=== PATIENT | female | born 1990 | race Caucasian/White ===

== ENCOUNTER 2016-11-10 17:08 | Emergency (ER) | payer OTHER ==
[~2016-11-10] VITALS: Ht 152.4 cm; Wt 107.0 kg
[2016-11-10 17:12] VITALS: TEMP 37
[2016-11-10] MEDS ORDERED: SODIUM CHLORIDE 0.9% 1000ML 1,000 ML IV SCH (17:28)
[2016-11-10 17:59] LABS: BASO % 0.3 %; BASO ABS # 0.02 K/uL (0-0.2); COMPLETE YES; EOS % 1.2 %; HEMATOCRIT 38.6 % (37-47); LYMPH % 35.9 %; LYMPH ABS # 2.73 K/uL (1.2-3.4); MEAN CELL VOLUME 83.5 fL (80-100); MEAN CORPUSCULAR HEMOGLOBIN 28.6 pg (25-34); MEAN CORPUSCULAR HGB CONC 34.2 g/dl (32-36); MEAN PLATELET VOLUME 10.6 fL (7.4-10.4); MONO % 7.6 %; PLATELET COUNT 298 K/uL (130-400); RED BLOOD COUNT 4.62 M/uL (4.2-5.4)
[2016-11-10 18:03] VITALS: Ht 152.4 cm; Wt 107.0 kg
[2016-11-10 18:07] VITALS: O2SAT 99
[2016-11-10 18:12] LABS: PARTIAL THROMBOPLASTIN RATIO 1.1; PROTHROMBIN TIME (PATIENT) 11.1 SECONDS (9.0-12.0)
[2016-11-10 18:23] LABS: PREG INTERNAL NEGATIVE QC NEG CLEAR BACKGROUND; PREG INTERNAL POSITIVE QC POS CONTROL LINE
[2016-11-10 18:24] LABS: BLOOD UREA NITROGEN 11 mg/dl (7-18); BUN/CREATININE RATIO 13.9 (10-20); CARBON DIOXIDE 24 mmol/L (21-32); CHLORIDE 108 mmol/L (98-107); CREATININE 0.79 mg/dl (0.60-1.20); GLUCOSE 88 mg/dl (70-99); POTASSIUM 3.6 mmol/L (3.5-5.1); SODIUM 140 mmol/L (136-145)
[2016-11-10 18:28] LABS: CKMB/CK RATIO 0.7 (0-3.0)
--- NOTE | 2016-11-10 18:37 | DIAGNOSTIC IMAGING REPORT ---
CT OF THE HEAD WITHOUT CONTRAST CLINICAL HISTORY: Possible stroke. Left eye vision loss. COMPARISON STUDY: No previous studies for comparison. CT DOSE: 537.48 mGy.cm TECHNIQUE: Helical axial images of the head were obtained without IV contrast. Automated exposure control was utilized for the study. FINDINGS: No acute intracranial hemorrhage, midline shift or mass effect is present. Brain volume is normal. Ventricular system is normal. The basilar cisterns are patent. There are no extra axial collections. Hardy-white differentiation is maintained. There are no findings to suggest acute dural sinus thrombosis or acute territorial infarct. Visualized portions of the sinuses and the mastoid air cells are clear. There are no significant calvarial abnormalities. IMPRESSION: No acute intracranial findings. Electronically signed by: Nash De La Rosa M.D. 11/10/2016 6:36 PM Dictated Date/Time: 11/10/2016 6:35 PM
[2016-11-10 19:11] LABS: MANUAL MICROSCOPIC REQUIRED? NO; REVIEW REQ? NO; URINE APPEARANCE CLEAR (CLEAR); URINE BILIRUBIN NEG (NEG); URINE COLOR YELLOW; URINE NITRITE NEG (NEG); URINE SPECIFIC GRAVITY 1.003 (1.000-1.030); UROBILINOGEN NEG (NEG); ZZUR CULT IF INDIC CLEAN CATCH NO
[2016-11-10 19:40] LABS: BENZODIAZEPINE, URINE NEG (NEG); COCAINE,URINE NEG (NEG); PHENCYCLIDINE, URINE NEG (NEG)
[2016-11-10] MEDS ORDERED: GADAVIST IV PRN (20:30)
--- NOTE | 2016-11-10 20:42 | DIAGNOSTIC IMAGING REPORT ---
Brain MRI WITH AND WITHOUT CONTRAST HISTORY: loss of vision, left eye, headache TECHNIQUE: Multiplanar multisequence MRI of the brain was performed both before and after the intravenous administration of contrast. COMPARISON STUDY: Head CT 11/10/2016. FINDINGS: There are no areas of restricted diffusion to suggest acute infarction. The midline structures are intact. The paranasal sinuses are clear. The mastoid air cells are clear. The ventricles and sulci are within normal limits for age. There is no mass, hematoma, midline shift. The major vascular flow-voids at the skull base are well maintained. Postcontrast sequences show no areas of abnormal enhancement. IMPRESSION: No acute intracranial abnormality. Electronically signed by: Paulino Contreras M.D. 11/10/2016 8:40 PM Dictated Date/Time: 11/10/2016 8:33 PM
[2016-11-10 22:35] VITALS: BP 135/88; PULSE 74; O2SAT 95
--- NOTE | 2016-11-11 01:27 | EMERGENCY ROOM VISIT NOTE ---
History Report prepared by Denise: Jeff Jovel Under the Supervision of: Dr. Julio César Wang M.D. First contact with patient: 17:27 Chief Complaint: EYE ASSESSMENT Stated Complaint: LOSS OF VISION IN LEFT EYE History of Present Illness The patient is a 26 year old female who presents to the Emergency Room with complaints of constant left eye vision loss occurring around 0900 this morning. The patient states that she went to bed last night with normal vision, and she woke up with a black spot on the left spot of her vision. The patient additionally is complaining of a headache for a few days now in the front of her head. She additionally states that the other day she was having some blue and white floaters in both eyes. The patient states that she has a history of headaches, however these are different than usual. The patient states that she has had some runny nose, but it is mostly when she goes outside. The patient denies any eye medical history or recent traumas. The patient states that she does not have any medical history, and she does not take any medications. The patient states that her mother had a stroke when she was about 52 years old. Pt denies LOC, fevers, chills, diaphoresis, neck pain, chest pain, breathing difficulties, nausea, vomiting, abdominal pain, back pain, melena, hematochezia , urinary symptoms, numbness, weakness, lymphadenopathy, rash, or other complaints. Source of History: patient Onset: 0900 this morning Position: eye (left) Quality: other (vision loss) Timing: constant Associated Symptoms: + headache Review of Systems See HPI for pertinent positives and negatives. A total of ten systems were reviewed and were otherwise negative. Past Medical & Surgical Medical Problems: (1) Headache Family History FHx: aneurysm Stroke Social History Smoking Status: Never Smoker Marital Status: single Occupation Status: employed Current/Historical Medications No Active Prescriptions or Reported Meds Allergies Coded Allergies: No Known Allergies (Unverified , 11/10/16) Physical Exam Vital Signs Date Time Temp Pulse Resp B/P Pulse Ox O2 Delivery O2 Flow Rate FiO2 11/10/16 22:35 74 16 135/88 95 11/10/16 22:01 72 11/10/16 20:33 79 16 131/83 98 Room Air 11/10/16 19:30 80 14 130/77 97 Room Air 11/10/16 18:53 71 18 150/79 96 Room Air 11/10/16 18:07 99 Room Air 11/10/16 18:00 83 11/10/16 17:30 82 16 155/95 99 Room Air 11/10/16 17:12 37.0 69 18 137/83 96 Room Air Physical Exam GENERAL: Awake, alert, well appearing, no distress HENT: Normocephalic, atraumatic. TM's normal. Oropharynx unremarkable. EYES: PERRL. EOMI. Normal conjunctiva. Sclera non-icteric. NECK: Supple. No nuchal rigidity. FROM. No JVD or bruit. RESPIRATORY: CTA CARDIAC: RRR. No murmur. ABDOMEN: Soft, non distended. No tenderness to palpation. No rebound or guarding. No masses. RECTAL: Deferred. MUSCULOSKELETAL: Unremarkable. No edema. No discoloration. Gross motor strength symmetric. NEURO: Visual ayala intact to static and dynamic testing bilaterally. Cranial nerves 2-12 grossly intact. Normal sensorium. No sensory or motor deficits noted. Speech normal. No pronator drift. SKIN: No rash or jaundice noted. LYMPH: No adenopathy. Medical Decision & Procedures ER Provider Diagnostic Interpretation: Radiology results as stated below per my review and radiologist interpretation CT OF THE HEAD WITHOUT CONTRAST CLINICAL HISTORY: Possible stroke. Left eye vision loss. COMPARISON STUDY: No previous studies for comparison. CT DOSE: 537.48 mGy.cm TECHNIQUE: Helical axial images of the head were obtained without IV contrast. Automated exposure control was utilized for the study. FINDINGS: No acute intracranial hemorrhage, midline shift or mass effect is present. Brain volume is normal. Ventricular system is normal. The basilar cisterns are patent. There are no extra axial collections. Hardy-white differentiation is maintained. There are no findings to suggest acute dural sinus thrombosis or acute territorial infarct. Visualized portions of the sinuses and the mastoid air cells are clear. There are no significant calvarial abnormalities. IMPRESSION: No acute intracranial findings. Electronically signed by: Nash De La Rosa M.D. 11/10/2016 6:36 PM Dictated Date/Time: 11/10/2016 6:35 PM Brain MRI WITH AND WITHOUT CONTRAST HISTORY: loss of vision, left eye, headache TECHNIQUE: Multiplanar multisequence MRI of the brain was performed both before and after the intravenous administration of contrast. COMPARISON STUDY: Head CT 11/10/2016. FINDINGS: There are no areas of restricted diffusion to suggest acute infarction. The midline structures are intact. The paranasal sinuses are clear. The mastoid air cells are clear. The ventricles and sulci are within normal limits for age. There is no mass, hematoma, midline shift. The major vascular flow-voids at the skull base are well maintained. Postcontrast sequences show no areas of abnormal enhancement. IMPRESSION: No acute intracranial abnormality. Electronically signed by: Paulino Contreras M.D. 11/10/2016 8:40 PM Dictated Date/Time: 11/10/2016 8:33 PM Laboratory Results 11/10/16 17:43 Red Blood Count 4.62, Mean Corpuscular Volume 83.5, Mean Corpuscular Hemoglobin 28.6, Mean Corpuscular Hemoglobin Concent 34.2, Mean Platelet Volume 10.6, Neutrophils (%) (Auto) 55.0, Lymphocytes (%) (Auto) 35.9, Monocytes (%) (Auto) 7.6, Eosinophils (%) (Auto) 1.2, Basophils (%) (Auto) 0.3, Neutrophils # (Auto) 4.18, Lymphocytes # (Auto) 2.73, Monocytes # (Auto) 0.58, Eosinophils # (Auto) 0.09, Basophils # (Auto) 0.02 11/10/16 17:43 Test 11/10/16 17:38 11/10/16 17:39 11/10/16 17:43 11/10/16 18:50 Bedside Prothrombin Time INR 1.0 (0.9-1.1) Bedside Glucose 91 mg/dl (70-90) White Blood Count 7.60 K/uL (4.8-10.8) Red Blood Count 4.62 M/uL (4.2-5.4) Hemoglobin 13.2 g/dL (12.0-16.0) Hematocrit 38.6 % (37-47) Mean Corpuscular Volume 83.5 fL (80-100) Mean Corpuscular Hemoglobin 28.6 pg (25-34) Mean Corpuscular Hemoglobin Concent 34.2 g/dl (32-36) Platelet Count 298 K/uL (130-400) Mean Platelet Volume 10.6 fL (7.4-10.4) Neutrophils (%) (Auto) 55.0 % Lymphocytes (%) (Auto) 35.9 % Monocytes (%) (Auto) 7.6 % Eosinophils (%) (Auto) 1.2 % Basophils (%) (Auto) 0.3 % Neutrophils # (Auto) 4.18 K/uL (1.4-6.5) Lymphocytes # (Auto) 2.73 K/uL (1.2-3.4) Monocytes # (Auto) 0.58 K/uL (0.11-0.59) Eosinophils # (Auto) 0.09 K/uL (0-0.5) Basophils # (Auto) 0.02 K/uL (0-0.2) RDW Standard Deviation 44.9 fL (36.4-46.3) RDW Coefficient of Variation 14.8 % (11.5-14.5) Immature Granulocyte % (Auto) 0.0 % Immature Granulocyte # (Auto) 0.00 K/uL (0.00-0.02) Prothrombin Time 11.1 SECONDS (9.0-12.0) Prothromb Time International Ratio 1.0 (0.9-1.1) Activated Partial Thromboplast Time 27.3 SECONDS (21.0-31.0) Partial Thromboplastin Ratio 1.1 Anion Gap 8.0 mmol/L (3-11) Est Creatinine Clear Calc Drug Dose 121.5 ml/min Estimated GFR () 121.4 Estimated GFR (Non- 104.8 BUN/Creatinine Ratio 13.9 (10-20) Calcium Level 9.0 mg/dl (8.5-10.1) Total Creatine Kinase 197 U/L (26-192) Creatine Kinase MB 1.3 ng/ml (0.5-3.6) Creatine Kinase MB Ratio 0.7 (0-3.0) Troponin I < 0.015 ng/ml (0-0.045) Human Chorionic Gonadotropin, Qual NEG (NEG) Urine Color YELLOW Urine Appearance CLEAR (CLEAR) Urine pH 6.0 (4.5-7.5) Urine Specific [place] 1.003 (1.000-1.030) Urine Protein NEG (NEG) Urine Glucose (UA) NEG (NEG) Urine Ketones NEG (NEG) Urine Occult Blood NEG (NEG) Urine Nitrite NEG (NEG) Urine Bilirubin NEG (NEG) Urine Urobilinogen NEG (NEG) Urine Leukocyte Esterase NEG (NEG) Urine Opiates Screen NEG (NEG) Urine Methadone, Qualitative NEG (NEG) Urine Barbiturates NEG (NEG) Urine Phencyclidine (PCP) Level NEG (NEG) Ur Amphetamine/Methamphetamine NEG (NEG) MDMA (Ecstasy) Screen NEG (NEG) Urine Benzodiazepines Screen NEG (NEG) Urine Cocaine Metabolite NEG (NEG) Urine Marijuana (THC) NEG (NEG) Laboratory results reviewed by me Medications Administered Medications (Trade) Dose Ordered Sig/Miladis Route Start Time Stop Time Status Last Admin Dose Admin Sodium Chloride (Nss 1000ml) 1,000 ml @ 50 mls/hr Q20H IV 11/10/16 17:28 11/10/16 23:11 DC 11/10/16 18:08 50 MLS/HR ECG Indication: other (Visual Loss) Rate (beats per minute): 64 Rhythm: normal sinus Findings: no acute ischemic change, no ectopy ED Course 1728: Sodium Chloride 1000 ml @ 50 mls/hr IV 1750: The patient was evaluated in room A4. A complete history and physical exam was performed. 1918: I updated the patient, and she was resting. She was sent to MRI 2205: I discussed the patient's case with Dr. Sol, Ophthalmology, and he states that he is going to follow up with the patient tomorrow in his office. 2227: I reevaluated the patient, and told her about her appointment tomorrow. She states that her vision is a little bit better now. Discussed results and discharge instructions: She verbalized understanding and agreement. The patient is ready for discharge. Medical Decision Triage Nursing notes reviewed. The patient's presentation and history were concerning for visual disturbance and headache. Etiologies such as migraine, tumor, headache, sinus thrombosis, temporal arteritis, sinusitis, CVA, ICH, SAH, infection, as well as others were entertained. The patient was evaluated. Her CBC, urinalysis, chemistry panel and urinalysis are negative. CT imaging did not reveal any abnormal findings. The patient underwent MR imaging to further evaluate for possible CVA, MS or other pathology. This was negative. On reassessment the patient was feeling better. She noted that her visual disturbance was improving. The patient was hydrated. She had a consultation made with ophthalmology. I discussed the case with Dr. Sol. The patient will be seen tomorrow in the office. The patient felt very comfortable with this plan. If she worsens in any way she will be back. This may be an atypical migraine. She may have some retinal issues. Ophthalmology will further evaluate the eye. The patient will also follow up with her primary physician. By the evaluation outlined above other emergent etiologies such as those listed in the differential, as well as others, were deemed relatively unlikely. The patient was informed about the findings as listed above. All questions were answered and she was pleased with the treatment. Return instructions were outlined and the patient was discharged in stable condition. The patient was referred to her PCP and ophthalmology for follow-up for a recheck of the current condition. The chart was completed utilizing [employer] Speech voice recognition software. Grammatical errors, random word insertions, pronoun errors, and incomplete sentences are an occasional consequence of this system due to software limitations, ambient noise, and hardware issues. Any formal questions or concerns about the content, text, or information contained within the body of this dictation should be directly addressed to the physician for clarification. Consults Time Called: 2200 Consulting Physician: Dr. Sol, Ophthalmology Returned Call: [phone] I discussed the patient's case with Dr. Sol, Ophthalmology, and he states that he is going to follow up with the patient tomorrow in his office. Impression Primary Impression: Subjective visual disturbance of left eye Additional Impression: Headache Scribe Attestation The scribe's documentation has been prepared under my direction and personally reviewed by me in its entirety. I confirm that the note above accurately reflects all work, treatment, procedures, and medical decision making performed by me. Departure Information Dispostion Home / Self-Care Prescriptions No Active Prescriptions or Reported Meds Referrals No Doctor, Assigned (PCP) Forms HOME CARE DOCUMENTATION FORM, IMPORTANT VISIT INFORMATION, WORK / SCHOOL INSTRUCTIONS Patient Instructions My [facility] [employer] Voiceboard Additional Instructions Rest and drink plenty fluids. Follow-up with ophthalmology tomorrow. The number is listed below under Dr. Sol. He will be operating tomorrow but his partners will be available to see you. Call the office between 8 and 8:30 AM. Return to the ER for loss of vision, severe eye pain, headache, passing out, difficulty breathing, fevers, numbness, tingling, worsening of your condition, or as needed. Problem Qualifiers
== END 2016-11-10 22:36 | disposition home or self-care (01) ==
LOC: C.EDB 17:10 → C.EDA 22:36
DX: H53.8 Other visual disturbances (principal); R51 Headache